=== PATIENT | male | born 1990 | race Two or more races ===

== ENCOUNTER 2017-03-16 18:05 | Inpatient (IN) | payer BC ==
[~2017-03-16] VITALS: Ht 175.3 cm; Wt 126.1 kg
--- NOTE | 2017-03-16 18:29 | PHYS DOC ---
Past Medical History Past Medical History: No Pertinent History Past Surgical History: No Surgical History Alcohol Use: Occasionally Drug Use: None Adult General Chief Complaint Chief Complaint: ABDOMINAL PAIN HPI HPI Patient is a 26 year old M who presents with abdominal pain. Patient states he was eating pizza and developed severe abdominal pain and right upper quadrant pain that radiated to his chest he waited department 20 minutes and the pain was 10 out of 10 and therefore called the ambulance. Upon arrival to the emergency room. The pain 3 out of 10. Patient's states all his pain is epigastric and right upper quadrant. Patient complains of nausea with no vomiting. Patient denies any fevers. Patient denies any previous symptoms. Patient denies any abdominal surgeries. Patient denies any cardiac history. Patient has no other complaints. Review of Systems Review of Systems GEN: Denies fevers, chills, sweats HEENT: Denies blurred vision, sore throat CV: Denies chest pain RESP: Denies shortness of air, cough GI: Abdominal pain NEURO: Denies confusion, dizziness MSK: Denies weakness, joint pain/swelling Current Medications Current Medications Current Medications Medications (Trade) Dose Ordered Sig/Luanne Start Time Stop Time Status Last Admin Dose Admin Famotidine (Pepcid) 20 mg 1X ONCE 03/16/17 18:45 03/16/17 18:46 DC 03/16/17 18:50 20 MG Morphine Sulfate 4 mg PRN Q2HR PRN 03/16/17 20:30 03/17/17 20:29 Ondansetron HCl (Zofran) 4 mg PRN Q8HRS PRN 03/16/17 20:30 03/17/17 20:29 Sodium Chloride 1,000 ml @ 1,000 mls/hr 1X ONCE 03/16/17 18:30 03/16/17 19:29 DC 03/16/17 18:50 1,000 MLS/HR Allergies Allergies Allergies Coded Allergies Type Severity Reaction Last Updated Verified No Known Drug Allergies 03/16/17 No Physical Exam Physical Exam GEN.: No apparent distress. Alert and oriented. HEENT: Head is normocephalic, atraumatic NECK: Supple. LUNGS: CTAB. HEART: RRR, S1, S2 present. Peripheral pulses intact ABDOMEN: Soft, positive tender to palpation epigastric and right upper quadrant with rebound. Positive bowel sounds. EXTREMITIES: Without any cyanosis. NEUROLOGIC: Normal speech, normal tone PSYCHIATRIC: Normal affect, normal mood. SKIN: No ulcerations Current Patient Data Vital Signs Vital Signs Date Time Temp Pulse Resp B/P (MAP) Pulse Ox O2 Delivery O2 Flow Rate FiO2 03/16/17 20:37 81 20 127/60 (82) 100 03/16/17 18:19 98.6 Room Air 98.6 Lab Values Laboratory Tests Test 03/16/17 18:30 03/16/17 18:48 White Blood Count 11.3 x10^3/uL (4.0-11.0) H Red Blood Count 4.82 x10^6/uL (4.30-5.70) Hemoglobin 13.5 g/dL (13.0-17.5) Hematocrit 41.3 % (39.0-53.0) Mean Corpuscular Volume 86 fL (79-100) Mean Corpuscular Hemoglobin 28 pg (25-35) Mean Corpuscular Hemoglobin Concent 33 g/dL (31-37) Red Cell Distribution Width 14.0 % (11.5-14.5) Platelet Count 149 x10^3/uL (140-400) Neutrophils (%) (Auto) 74 % (31-73) H Lymphocytes (%) (Auto) 19 % (24-48) L Monocytes (%) (Auto) 6 % (0-9) Eosinophils (%) (Auto) 1 % (0-3) Basophils (%) (Auto) 1 % (0-3) Neutrophils # (Auto) 8.4 x10^3uL (1.8-7.7) H Lymphocytes # (Auto) 2.1 x10^3/uL (1.0-4.8) Monocytes # (Auto) 0.6 x10^3/uL (0.0-1.1) Eosinophils # (Auto) 0.1 x10^3/uL (0.0-0.7) Basophils # (Auto) 0.1 x10^3/uL (0.0-0.2) Sodium Level 141 mmol/L (136-145) Potassium Level 3.5 mmol/L (3.5-5.1) Chloride Level 103 mmol/L (98-107) Carbon Dioxide Level 29 mmol/L (21-32) Anion Gap 9 (6-14) Blood Urea Nitrogen 18 mg/dL (8-26) Creatinine 1.1 mg/dL (0.7-1.3) Estimated GFR (Cockcroft-Gault) 79.7 BUN/Creatinine Ratio 16 (6-20) Glucose Level 135 mg/dL (70-99) H Calcium Level 9.2 mg/dL (8.5-10.1) Total Bilirubin 0.3 mg/dL (0.2-1.0) Aspartate Amino Transferase (AST) 66 U/L (15-37) H Alanine Aminotransferase (ALT) 74 U/L (16-63) H Alkaline Phosphatase 92 U/L (46-116) Troponin I Quantitative < 0.017 ng/mL (0.000-0.055) Total Protein 7.9 g/dL (6.4-8.2) Albumin 3.6 g/dL (3.4-5.0) Albumin/Globulin Ratio 0.8 (1.0-1.7) L Lipase 134 U/L (73-393) Urine Collection Type Unknown Urine Color Yellow Urine Clarity Clear Urine pH 6.0 Urine Specific [place] 1.020 Urine Protein Negative mg/dL (NEG-TRACE) Urine Glucose (UA) Negative mg/dL (NEG) Urine Ketones (Stick) Negative mg/dL (NEG) Urine Blood Negative (NEG) Urine Nitrite Negative (NEG) Urine Bilirubin Negative (NEG) Urine Urobilinogen Dipstick 0.2 mg/dL (0.2 mg/dL) Urine Leukocyte Esterase Negative (NEG) Urine RBC 0 /HPF (0-2) Urine WBC Occ /HPF (0-4) Urine Squamous Epithelial Cells Few /LPF Urine Bacteria 0 /HPF (0-FEW) Urine Mucus Slight /LPF Laboratory Tests 03/16/17 18:30 Laboratory Tests 03/16/17 18:30 EKG EKG 1900: EKG shows normal sinus rhythm rate of 76 no STEMI[] Radiology/Procedures Radiology/Procedures Ultrasound right upper quadrant: IMPRESSION: 1. Nonmobile 2.5 cm stone in the gallbladder neck. There is no clear pericholecystic fluid or wall thickening, but the weatherization and housing inspector notes a positive Buenrostro sign. Correlate for evidence of infection to assess for acute cholecystitis. 2. Diffuse hepatic steatosis. 3. The common duct is at the upper limits of normal caliber without a clear distal obstructing lesion. Correlate for cholestasis to assess significance. [] Course & Med Decision Making Course & Med Decision Making Pertinent Labs and Imaging studies reviewed. (See chart for details) ED course: Patient was seen and examined emergency room CBC, CMP, lipase, UA, Right Upper Quadrant 2004: Reevaluated the patient who still having right upper quadrant pain explain altered results with him 2013: Discussed CC/HP/PMH with Dr. Salomon and recommends admit and place him on consult. 2040: Discussed CC/HP/PMH with Dr. Ennis and recommends admit [] [] Dragon Disclaimer Dragon Disclaimer This electronic medical record was generated, in whole or in part, using a voice recognition dictation system. Departure Departure Impression: Primary Impression: Right upper quadrant pain Additional Impressions: Transaminitis Cholelithiasis Disposition: ADMITTED INPATIENT Admitting Physician: Other (Dr. Ennis) Condition: STABLE Problem Qualifiers MILLER MACK DO Mar 16, 2017 18:29
[2017-03-16] MEDS ORDERED: IV NORMAL SALINE 1000ML BAG 1,000 ML IV ONE (18:30)
[2017-03-16 18:42] LABS: BASO # 0.1 x10^3/uL (0.0-0.2); BASO % 1 % (0-3); EOS % 1 % (0-3); HEMATOCRIT 41.3 % (39.0-53.0); HEMOGLOBIN 13.5 g/dL (13.0-17.5); LYMPH # 2.1 x10^3/uL (1.0-4.8); LYMPH % 19 % (24-48); MEAN CORPUSCULAR HEMOGLOBIN 28 pg (25-35); MEAN CORPUSCULAR HGB CONC 33 g/dL (31-37); MEAN CORPUSCULAR VOLUME 86 fL (79-100); MONO % 6 % (0-9); NEUT % 74 % (31-73); PLATELET COUNT 149 x10^3/uL (140-400); RED BLOOD COUNT 4.82 x10^6/uL (4.30-5.70); WHITE BLOOD COUNT 11.3 x10^3/uL (4.0-11.0)
[2017-03-16] MEDS ORDERED: FAMOTIDINE 20 MG/2 ML VIAL IVP ONE (18:45)
[2017-03-16] MEDS ORDERED: ONDANSETRON PF 4 MG/2 ML VIAL. IV ONE (18:45)
[2017-03-16 18:48] LABS: CALCIUM 9.2 mg/dL (8.5-10.1); CREATININE 1.1 mg/dL (0.7-1.3); GFR 79.7; POTASSIUM 3.5 mmol/L (3.5-5.1)
[2017-03-16 18:54] LABS: ALBUMIN 3.6 g/dL (3.4-5.0); ALBUMIN/GLOBULIN RATIO 0.8 (1.0-1.7); TOTAL BILIRUBIN 0.3 mg/dL (0.2-1.0); TOTAL PROTEIN 7.9 g/dL (6.4-8.2)
[2017-03-16 19:00] LABS: BILIRUBIN,URINE NEGATIVE (NEG); GLUCOSE,URINE NEGATIVE (NEG); NITRITE,URINE NEGATIVE (NEG); PROTEIN,URINE NEGATIVE (NEG-TRACE); UROBILINOGEN,URINE 0.2 mg/dL (0.2 mg/dL)
[2017-03-16 19:08] LABS: BACTERIA,URINE 0 /HPF (0-FEW); RBC,URINE 0 /HPF (0-2); SQUAMOUS EPITHELIAL CELL,UR FEW /LPF; WBC,URINE OCC /HPF (0-4)
--- NOTE | 2017-03-16 19:51 | RAD ---
EXAM: RIGHT UPPER QUADRANT ULTRASOUND. HISTORY: Right upper quadrant pain. COMPARISON: None. FINDINGS: Sonographic evaluation of the right upper quadrant was performed. Visualization is limited by habitus. Hyperechogenicity of the hepatic parenchyma is consistent with diffuse hepatic steatosis. This lowers sensitivity for focal lesions. And are seen. A gallstone in the gallbladder neck measures 2.5 cm. It is nonmobile. There is no clear pericholecystic fluid or wall thickening. The quality auditor notes a positive Buenrostro sign. The common duct is at the upper limits of normal caliber at 6 mm. mm. Limited images of the head of the pancreas reveal no abnormality. The right kidney measures 11.7 cm. Cortical thickness and echogenicity are preserved. There is no hydronephrosis. The visualized portions of the abdominal aorta and inferior vena cava are grossly patent and normal in caliber. IMPRESSION: 1. Nonmobile 2.5 cm stone in the gallbladder neck. There is no clear pericholecystic fluid or wall thickening, but the quality auditor notes a positive Buenrostro sign. Correlate for evidence of infection to assess for acute cholecystitis. 2. Diffuse hepatic steatosis. 3. The common duct is at the upper limits of normal caliber without a clear distal obstructing lesion. Correlate for cholestasis to assess significance. Electronically signed by: Alana Chaves MD (03/16/2017 7:47 PM) [facility]
[2017-03-16] MEDS ORDERED: ONDANSETRON PF 4 MG/2 ML VIAL. IV PRN (20:30)
[2017-03-16] MEDS ORDERED: MORPHINE SULFATE 4 MG/ML DISP.SYRIN. IV PRN ×2 (20:30→21:15)
[2017-03-16 21:25] VITALS: BP 139/65
[2017-03-16] MEDS ORDERED: MORPHINE SULFATE 2 MG/ML DISP.SYRIN. IV PRN (21:30)
[2017-03-16] MEDS: IV NORMAL SALINE 1000ML BAG 1,000 ML IV SCH (22:50)
[2017-03-16 23:00] VITALS: BP 124/53
--- NOTE | 2017-03-16 23:24 | ACF ---
Admission Forms Criteria ABDOMINAL PAIN Clinical Indications for Admission to Inpatient Care ( [place]/check or initial the applicable condition/criteria): Admission is indicated for ANY ONE of the following (1)(2)(3)(4)(5)(6): [ ]I. Surgery needed that cannot be performed on ambulatory basis [ ]II. Peritoneal signs present (eg, rebound tenderness, rigidity) [ ]III. Evaluation requires patient to not eat or drink for extended period ( eg, more than 24 hours). [X]IV. Inpatient admission required[B] rather than observation care (see Abdominal Pain: Observation Care guideline as appropriate) because of ANY ONE of the following(7)(8)(9): [ ] a) Hemodynamic instability [ ]b) Severe pain requiring acute inpatient management [X]c) Identification of etiology or finding that requires inpatient care (eg, aortic dissection, free air,bowel ischemia)(10) [ ]d) Absent bowel sounds with complete ileus (11) [ ]e) Signs of intestinal obstruction[C] [ ]f) Suspected toxic megacolon [ ]g) Severe electrolyte abnormalities requiring inpatient care [ ]h) High fever or infection requiring inpatient admission as indicated by ANY ONE of the following (12)(13): [ ]i) Appropriate outpatient or observation care antimicrobial treatment unavailable, not effective, or not feasible [ ]ii) Documented bacteremia [ ]iii) Temperature greater than 104.9 degrees F (40.5 degrees C) (oral) [ ]iv) Temperature greater than 103.1 degrees F (39.5 degrees C) ( oral) or less than 96.8 degrees F (36 degrees C) (rectal) that does not respond to all emergency treatment measures [ ]i) IV fluid required rather than oral rehydration to replace significant ongoing (eg, for greater than 24 hours) losses (greater than 3 L/m2 per day)(14)(15) [ ]j) Percutaneous or open drainage (eg, abscess, biliary tract) procedures [ ]k) Parenteral nutrition regimen that must be implemented on inpatient basis [ ]l) Other condition, treatment, or monitoring requiring inpatient admission Extended stay beyond goal length of stay may be needed for (1)(3)(4)(10)(16): [ ]a) Surgery (e.g., colectomy, revascularization procedure) [ ]b) Persistent abdominal pain with suspected intra-abdominal process [ ]c) Diagnosed condition requiring continued stay (e.g., pancreatitis, complicated diverticulitis) The original [facility] content created by [facility] has been revised. The portions of the content which have been revised are identified through the use of italic text, and [facility] has neither reviewed nor approved the modified material.All other unmodified content is copyright [facility]. Please see references footnoted in the original [facility] edition 2015 Admission Criteria Met?: Yes COOPER PRAJAPATI Mar 16, 2017 23:24
--- NOTE | 2017-03-16 23:53 | HP ---
ADMIT DATE: 03/16/2017 CHIEF COMPLAINT: Abdominal pain. HISTORY OF PRESENT ILLNESS: The patient is a 26-year-old gentleman who presented with severe epigastric pain to the Emergency Room. He related that this started shortly after lunch at which time he had ingested 4 slices of pizza. He relates that pain was very sharp, stabbing in nature and in the subxiphoid area. He initially felt like vomiting, went to the bathroom, but could not throw up. He then went to his boss and EMS was called because he was unable to stand or sit. He felt a little better with lying down on the floor. In the Emergency Room, pain was better controlled with pain medications. CT revealed potential signs of cholecystitis and he is now admitted for further management and care. PAST MEDICAL HISTORY: None. FAMILY HISTORY: Positive with gallbladder disease, status post cholecystectomy in his sister, Mother has diabetes. SOCIAL HISTORY: Lives with his family. Drinks alcohol occasionally. No smoking or drugs. ALLERGIES: No known drug allergies. HOME MEDICATIONS: Essentially none. REVIEW OF SYSTEMS: Positive as per HPI. He denies any nausea, vomiting or diarrhea. Denies any chest pain or shortness of breath. Rest of organ system review is negative. PHYSICAL EXAMINATION: VITAL SIGNS: From today show a blood pressure of 108/53, heart rate of 82, respiratory rate at 22. He is afebrile. GENERAL: This is a morbidly obese 26-year-old , alert and oriented, in no acute distress. HEENT: Shows no scleral icterus. NECK: Supple. LUNGS: Clear to auscultation bilaterally. HEART: Regular rate and rhythm. ABDOMEN: Has positive bowel sounds, although diminished, soft. Tenderness to palpation along the entire rib margins, especially in the xiphoid area and right upper quadrant, but also on the left. EXTREMITIES: Show no edema. SKIN: Warm, soft and dry. LABORATORY DATA: CBC with a WBC of 11.3, hemoglobin 13.5, platelets of 149. Chemistries with a BUN and creatinine of 18 and 1.1, glucose at 135. Electrolytes within normal limits. Albumin at 3.6. Urine was negative for infectious symptoms. IMAGING: Ultrasound of the right upper quadrant showed a nonmobile 2.5 cm stone in the gallbladder neck. No clear pericholecystic fluid or wall thickening, but positive Buenrostro sign. Diffuse hepatic steatosis noted as well. Common duct is at the upper limits of normal caliber without clear distal obstructing lesion. ASSESSMENT AND PLAN: The patient is a 26-year-old gentleman presenting with signs and symptoms of gallstone cholecystitis. He is now admitted for further observation and evaluation by surgical team in the a.m. Pain medication will be administered IV. He will remain n.p.o. for the time being. IV fluids will be started. He will be placed on IV H2 blockers as well. His blood sugar is somewhat elevated at about 4 hours after his last meal. We will obtain hemoglobin A1c and monitor blood sugars with serial labs. DEANNE ALVARADO MD DR: JOVANI/nts JOB#: [id number] / [id number] [place]
[2017-03-17] VITALS (12 sets, daily range): BP systolic 95–126; BP diastolic 45–78
[2017-03-17 04:37] LABS: BASO % 1 % (0-3); EOS % 1 % (0-3); HEMATOCRIT 40.4 % (39.0-53.0); HEMOGLOBIN 13.6 g/dL (13.0-17.5); LYMPH # 1.9 x10^3/uL (1.0-4.8); LYMPH % 21 % (24-48); MEAN CORPUSCULAR HEMOGLOBIN 29 pg (25-35); MEAN CORPUSCULAR HGB CONC 34 g/dL (31-37); MEAN CORPUSCULAR VOLUME 85 fL (79-100); MONO % 9 % (0-9); NEUT % 69 % (31-73); PLATELET COUNT 142 x10^3/uL (140-400); RED BLOOD COUNT 4.77 x10^6/uL (4.30-5.70); RED CELL DISTRIBUTION WIDTH 13.9 % (11.5-14.5)
[2017-03-17 04:58] LABS: ALBUMIN 3.3 g/dL (3.4-5.0); CALCIUM 8.5 mg/dL (8.5-10.1); CREATININE 0.9 mg/dL (0.7-1.3); DIRECT BILIRUBIN 1.1 mg/dL (0.0-0.2); GFR 100.5; POTASSIUM 3.7 mmol/L (3.5-5.1); TOTAL BILIRUBIN 1.5 mg/dL (0.2-1.0); TOTAL PROTEIN 7.3 g/dL (6.4-8.2)
--- NOTE | 2017-03-17 06:51 | EKG ---
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
[2017-03-17] MEDS: IV NORMAL SALINE 1000ML BAG 1,000 ML IV SCH ×2 (07:15→17:26)
--- NOTE | 2017-03-17 08:22 | PDOC2 ---
ERNESTINA BERRY STRETCH BOX TENDER 03/17/17 0822: CONSULT Date of Consult Date of Consult DATE: 03/17/17 TIME: 08:15 Reason for Consult Reason for Consult: cholelithiasis Referring Physician Referring Physician: ER Identification/Chief Complaint Chief Complaint abdominal pain Problems: Source Source: Chart review, Patient History of Present Illness Reason for Visit: Acute onset of epigastric, severe pain yesterday afternoon. Started 40 minutes after having pizza for lunch. Attempted to vomit to relieve pain, however did not help. Associated chest tightness due to pain. Does report a similar episode 3 years ago after Macanese food, but the symptoms resolved fairly quickly. 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 No ALCOHOL: occassional Drugs: None Lives: Alone Current Problem List Problem List Problems Medical Problems: (1) Cholelithiasis Status: Acute (2) Right upper quadrant pain Status: Acute (3) Transaminitis Status: Acute Current Medications Current Medications Current Medications Famotidine (Pepcid) 20 mg 1X ONCE IVP Last administered on 03/16/17 18:50; Start 03/16/17 at 18:45; Stop 03/16/17 at 18:46; Status DC Ondansetron HCl (Zofran) 4 mg 1X ONCE IV Last administered on 03/16/17 18:50; Start 03/16/17 at 18:45; Stop 03/16/17 at 18:46; Status DC Sodium Chloride 1,000 ml @ 1,000 mls/hr 1X ONCE IV Last administered on 18:50; Start 03/16/17 at 18:30; Stop 03/16/17 at 19:29; Status DC Ondansetron HCl (Zofran) 4 mg PRN Q8HRS PRN IV NAUSEA/VOMITING; Start 03/16/17 at 20:30; Stop 03/17/17 at 20:29 Morphine Sulfate 4 mg PRN Q2HR PRN IV PAIN; Start 03/16/17 at 20:30; Stop at 21:24; Status DC Morphine Sulfate 4 mg PRN Q2HR PRN IV SEVERE PAIN; Start 03/16/17 at 21:15 Famotidine (Pepcid) 20 mg BID IVP ; Start 03/17/17 at 09:00 Sodium Chloride 1,000 ml @ 100 mls/hr Q10H IV Last administered on 03/16/17t 22 :50; Start 03/16/17 at 21:15 Morphine Sulfate 2 mg PRN Q2HR PRN IV MODERATE PAIN; Start 03/16/17 at 21:30 Active Scripts Active Reported No Known Medications Prior To Admisstion (Info) Each 1 Each Allergies Allergies: Coded Allergies: No Known Drug Allergies (Unverified , 03/16/17) ROS General: No: Chills, Other (fevers) PSYCHOLOGICAL ROS: No: Anxiety, Depression Eyes: No Blurry vision, No Double vision HEENT: No: Heacaches, Sore Throat Hematological and Lymphatic: No: Bleeding Problems, Blood Clots Respiratory: No: Cough, SOB with excertion Cardiovascular: No Chest Pain, No Palpitations Gastrointestinal: Yes Other (see hpi) Genitourinary: No Dysuria, No Hematuria Musculoskeletal: No Joint Pain, No Muscle Pain Neurological: No Confusion, No Numbness/Tingling Skin: No Pruritus, No Rash Physical Exam General: Alert, Oriented X3, Cooperative, No acute distress HEENT: PERRLA, Mucous membr. moist/pink Lungs: Clear to auscultation, Normal air movement Heart: Regular rate, Normal S1, Normal S2, No murmurs Abdomen: Normal bowel sounds, Soft, No tenderness Extremities: No clubbing, No cyanosis Skin: No rashes, No breakdown Neuro: Normal speech, Sensation intact Psych/Mental Status: Mental status NL, Mood NL MUSCULOSKELETAL: No deformity, No swelling Vitals VITALS Vital Signs Date Time Temp Pulse Resp B/P (MAP) Pulse Ox O2 Delivery O2 Flow Rate FiO2 03/17/17 07:00 97.7 66 18 125/78 (94) 98 Room Air 97.7 Labs Labs Laboratory Tests Test 03/16/17 18:30 03/16/17 18:48 03/17/17 04:17 White Blood Count 11.3 x10^3/uL (4.0-11.0) 9.0 x10^3/uL (4.0-11.0) Red Blood Count 4.82 x10^6/uL (4.30-5.70) 4.77 x10^6/uL (4.30-5.70) Hemoglobin 13.5 g/dL (13.0-17.5) 13.6 g/dL (13.0-17.5) Hematocrit 41.3 % (39.0-53.0) 40.4 % (39.0-53.0) Mean Corpuscular Volume 86 fL (79-100) 85 fL (79-100) Mean Corpuscular Hemoglobin 28 pg (25-35) 29 pg (25-35) Mean Corpuscular Hemoglobin Concent 33 g/dL (31-37) 34 g/dL (31-37) Red Cell Distribution Width 14.0 % (11.5-14.5) 13.9 % (11.5-14.5) Platelet Count 149 x10^3/uL (140-400) 142 x10^3/uL (140-400) Neutrophils (%) (Auto) 74 % (31-73) 69 % (31-73) Lymphocytes (%) (Auto) 19 % (24-48) 21 % (24-48) Monocytes (%) (Auto) 6 % (0-9) 9 % (0-9) Eosinophils (%) (Auto) 1 % (0-3) 1 % (0-3) Basophils (%) (Auto) 1 % (0-3) 1 % (0-3) Neutrophils # (Auto) 8.4 x10^3uL (1.8-7.7) 6.2 x10^3uL (1.8-7.7) Lymphocytes # (Auto) 2.1 x10^3/uL (1.0-4.8) 1.9 x10^3/uL (1.0-4.8) Monocytes # (Auto) 0.6 x10^3/uL (0.0-1.1) 0.8 x10^3/uL (0.0-1.1) Eosinophils # (Auto) 0.1 x10^3/uL (0.0-0.7) 0.1 x10^3/uL (0.0-0.7) Basophils # (Auto) 0.1 x10^3/uL (0.0-0.2) 0.0 x10^3/uL (0.0-0.2) Sodium Level 141 mmol/L (136-145) 141 mmol/L (136-145) Potassium Level 3.5 mmol/L (3.5-5.1) 3.7 mmol/L (3.5-5.1) Chloride Level 103 mmol/L (98-107) 105 mmol/L (98-107) Carbon Dioxide Level 29 mmol/L (21-32) 26 mmol/L (21-32) Anion Gap 9 (6-14) 10 (6-14) Blood Urea Nitrogen 18 mg/dL (8-26) 11 mg/dL (8-26) Creatinine 1.1 mg/dL (0.7-1.3) 0.9 mg/dL (0.7-1.3) Estimated GFR (Cockcroft-Gault) 79.7 100.5 BUN/Creatinine Ratio 16 (6-20) Glucose Level 135 mg/dL (70-99) 118 mg/dL (70-99) Calcium Level 9.2 mg/dL (8.5-10.1) 8.5 mg/dL (8.5-10.1) Total Bilirubin 0.3 mg/dL (0.2-1.0) 1.5 mg/dL (0.2-1.0) Aspartate Amino Transf (AST/SGOT) 66 U/L (15-37) 592 U/L (15-37) Alanine Aminotransferase (ALT/SGPT) 74 U/L (16-63) 566 U/L (16-63) Alkaline Phosphatase 92 U/L (46-116) 102 U/L (46-116) Troponin I Quantitative < 0.017 ng/mL (0.000-0.055) Total Protein 7.9 g/dL (6.4-8.2) 7.3 g/dL (6.4-8.2) Albumin 3.6 g/dL (3.4-5.0) 3.3 g/dL (3.4-5.0) Albumin/Globulin Ratio 0.8 (1.0-1.7) Lipase 134 U/L (73-393) 120 U/L (73-393) Urine Collection Type Unknown Urine Color Yellow Urine Clarity Clear Urine pH 6.0 Urine Specific [place] 1.020 Urine Protein Negative mg/dL (NEG-TRACE) Urine Glucose (UA) Negative mg/dL (NEG) Urine Ketones (Stick) Negative mg/dL (NEG) Urine Blood Negative (NEG) Urine Nitrite Negative (NEG) Urine Bilirubin Negative (NEG) Urine Urobilinogen Dipstick 0.2 mg/dL (0.2 mg/dL) Urine Leukocyte Esterase Negative (NEG) Urine RBC 0 /HPF (0-2) Urine WBC Occ /HPF (0-4) Urine Squamous Epithelial Cells Few /LPF Urine Bacteria 0 /HPF (0-FEW) Urine Mucus Slight /LPF Direct Bilirubin 1.1 mg/dL (0.0-0.2) Laboratory Tests Test 03/16/17 18:30 03/16/17 18:48 03/17/17 04:17 White Blood Count 11.3 x10^3/uL (4.0-11.0) 9.0 x10^3/uL (4.0-11.0) Red Blood Count 4.82 x10^6/uL (4.30-5.70) 4.77 x10^6/uL (4.30-5.70) Hemoglobin 13.5 g/dL (13.0-17.5) 13.6 g/dL (13.0-17.5) Hematocrit 41.3 % (39.0-53.0) 40.4 % (39.0-53.0) Mean Corpuscular Volume 86 fL (79-100) 85 fL (79-100) Mean Corpuscular Hemoglobin 28 pg (25-35) 29 pg (25-35) Mean Corpuscular Hemoglobin Concent 33 g/dL (31-37) 34 g/dL (31-37) Red Cell Distribution Width 14.0 % (11.5-14.5) 13.9 % (11.5-14.5) Platelet Count 149 x10^3/uL (140-400) 142 x10^3/uL (140-400) Neutrophils (%) (Auto) 74 % (31-73) 69 % (31-73) Lymphocytes (%) (Auto) 19 % (24-48) 21 % (24-48) Monocytes (%) (Auto) 6 % (0-9) 9 % (0-9) Eosinophils (%) (Auto) 1 % (0-3) 1 % (0-3) Basophils (%) (Auto) 1 % (0-3) 1 % (0-3) Neutrophils # (Auto) 8.4 x10^3uL (1.8-7.7) 6.2 x10^3uL (1.8-7.7) Lymphocytes # (Auto) 2.1 x10^3/uL (1.0-4.8) 1.9 x10^3/uL (1.0-4.8) Monocytes # (Auto) 0.6 x10^3/uL (0.0-1.1) 0.8 x10^3/uL (0.0-1.1) Eosinophils # (Auto) 0.1 x10^3/uL (0.0-0.7) 0.1 x10^3/uL (0.0-0.7) Basophils # (Auto) 0.1 x10^3/uL (0.0-0.2) 0.0 x10^3/uL (0.0-0.2) Sodium Level 141 mmol/L (136-145) 141 mmol/L (136-145) Potassium Level 3.5 mmol/L (3.5-5.1) 3.7 mmol/L (3.5-5.1) Chloride Level 103 mmol/L (98-107) 105 mmol/L (98-107) Carbon Dioxide Level 29 mmol/L (21-32) 26 mmol/L (21-32) Anion Gap 9 (6-14) 10 (6-14) Blood Urea Nitrogen 18 mg/dL (8-26) 11 mg/dL (8-26) Creatinine 1.1 mg/dL (0.7-1.3) 0.9 mg/dL (0.7-1.3) Estimated GFR (Cockcroft-Gault) 79.7 100.5 BUN/Creatinine Ratio 16 (6-20) Glucose Level 135 mg/dL (70-99) 118 mg/dL (70-99) Calcium Level 9.2 mg/dL (8.5-10.1) 8.5 mg/dL (8.5-10.1) Total Bilirubin 0.3 mg/dL (0.2-1.0) 1.5 mg/dL (0.2-1.0) Aspartate Amino Transf (AST/SGOT) 66 U/L (15-37) 592 U/L (15-37) Alanine Aminotransferase (ALT/SGPT) 74 U/L (16-63) 566 U/L (16-63) Alkaline Phosphatase 92 U/L (46-116) 102 U/L (46-116) Troponin I Quantitative < 0.017 ng/mL (0.000-0.055) Total Protein 7.9 g/dL (6.4-8.2) 7.3 g/dL (6.4-8.2) Albumin 3.6 g/dL (3.4-5.0) 3.3 g/dL (3.4-5.0) Albumin/Globulin Ratio 0.8 (1.0-1.7) Lipase 134 U/L (73-393) 120 U/L (73-393) Urine Collection Type Unknown Urine Color Yellow Urine Clarity Clear Urine pH 6.0 Urine Specific [place] 1.020 Urine Protein Negative mg/dL (NEG-TRACE) Urine Glucose (UA) Negative mg/dL (NEG) Urine Ketones (Stick) Negative mg/dL (NEG) Urine Blood Negative (NEG) Urine Nitrite Negative (NEG) Urine Bilirubin Negative (NEG) Urine Urobilinogen Dipstick 0.2 mg/dL (0.2 mg/dL) Urine Leukocyte Esterase Negative (NEG) Urine RBC 0 /HPF (0-2) Urine WBC Occ /HPF (0-4) Urine Squamous Epithelial Cells Few /LPF Urine Bacteria 0 /HPF (0-FEW) Urine Mucus Slight /LPF Direct Bilirubin 1.1 mg/dL (0.0-0.2) Images Images IMPRESSION: 1. Nonmobile 2.5 cm stone in the gallbladder neck. There is no clear pericholecystic fluid or wall thickening, but the manager functional notes a positive Buenrostro sign. Correlate for evidence of infection to assess for acute cholecystitis. 2. Diffuse hepatic steatosis. 3. The common duct is at the upper limits of normal caliber without a clear distal obstructing lesion. Correlate for cholestasis to assess significance. Assessment/Plan Assessment/Plan symptomatic cholelithiasis obesity, BMI 41 Transaminitis d/w pt lap dior, he is hesitant about surgery, we discussed risks of cholecystitis, worsening pain, choledocholithiasis, pancreatitis if elects to not undergo surgery--he is going to speak with his family I will follow up, if agrees plan dior today ADDIS HERNANDES MD 03/17/17 1223: CONSULT Allergies Allergies: Coded Allergies: No Known Drug Allergies (Unverified , 03/16/17) Assessment/Plan Assessment/Plan Reviewed, pt seen and examined independently by myself; 26 year old male with upper mid abdominal pain, acute onset, sharp, nonradiating, some nausea but no vomiting, pain improved significantly; PMH/PSH/ROS/SH as above; exam: alert, oriented, no acute distress, no neck masses, no icterus, lungs clear, heart RR and R, abdomen obese, currently nontender, ext neg for edema or deformity, neuro function grossly intact all 4 extremities; lab/xrays reviewed, note bump in LFTs today; plan for lap dior with grams to evaluate ducts. I discussed the details and risks of surgery with the patient. He understands and would like to proceed. ERNESTINA BERRY APRN Mar 17, 2017 08:22 ADDIS HERNANDES MD Mar 17, 2017 12:23
[2017-03-17] MEDS: FAMOTIDINE 20 MG/2 ML VIAL IVP SCH ×2 (09:00→20:53)
[2017-03-17] MEDS ORDERED: IV RINGERS,LACTATED 1000ML 1,000 ML IV SCH (10:10)
[2017-03-17] MEDS ORDERED: fentaNYL PF VIAL 100 MCG/2 ML VIAL IV PRN (10:15)
[2017-03-17] MEDS ORDERED: LIDOCAINE 1% 1 ML SYRINGE. ID PRN (10:15)
[2017-03-17] MEDS ORDERED: HYDROmorphone 2 MG/ML VIAL IV PRN (10:15)
[2017-03-17] MEDS ORDERED: PROCHLORPERAZINE 10 MG/2 ML VIAL. IV PRN (10:15)
[2017-03-17] MEDS ORDERED: ONDANSETRON PF 4 MG/2 ML VIAL. IV PRN (10:15)
[2017-03-17] MEDS ORDERED: LIDOCAINE 2% PF Vial for OR 5 ML VIAL. ONE (11:11)
[2017-03-17] MEDS ORDERED: ONDANSETRON PF 4 MG/2 ML VIAL. ONE (11:11)
[2017-03-17] MEDS ORDERED: DEXAMETHASONE SOD PHOS 20 MG/5 ML VIAL. ONE (11:11)
[2017-03-17] MEDS ORDERED: PROPOFOL 20 ML IV ONE (11:11)
[2017-03-17] MEDS ORDERED: ROCURONIUM 100 MG/10 ML VIAL. ONE (11:12)
[2017-03-17] MEDS ORDERED: fentaNYL PF VIAL 100 MCG/2 ML VIAL ONE ×3 (11:12→13:42)
[2017-03-17] MEDS ORDERED: MIDAZOLAM HCL/PF 2 MG/2 ML VIAL. ONE (11:12)
[2017-03-17] MEDS ORDERED: SURGICEL HEMOSTAT 4X8 EACH. ONE (11:53)
[2017-03-17] MEDS ORDERED: IOHEXOL 300 MG/ML 50 ML VIAL. ONE (11:53)
[2017-03-17] MEDS ORDERED: BUPIVAC MPF-EPI 0.5%-1:200000 10 ML VIAL. ONE ×2 (11:54)
--- NOTE | 2017-03-17 12:32 | PDOC ---
PROGRESS NOTES Chief Complaint Chief Complaint Abd pain ASSESSMENT AND PLAN: 1. Cholelithiasis/cystitis: s/p lap dior earlier today. recovering appropriately. 2. Pain control: adequate. PO oxy PRN, IV morphine as back up. 3. GI prophylaxis: on H2B bid 4. Dispo: anticipate D/C tomorrow History of Present Illness History of Present Illness abd tender post surg. does not require pain meds currently. Vitals Vitals Vital Signs Date Time Temp Pulse Resp B/P (MAP) Pulse Ox O2 Delivery O2 Flow Rate FiO2 03/17/17 11:39 98.1 66 18 127/62 97 Room Air 98.1 Physical Exam General: Alert, Oriented X3, Cooperative, No acute distress Heart: Regular rate Lungs: Clear Abdomen: Other (post surg ttenderness throughout) Extremities: No clubbing, No cyanosis Skin: No rashes, No breakdown Labs LABS Laboratory Tests Test 03/16/17 18:30 03/16/17 18:48 03/17/17 04:17 White Blood Count 11.3 x10^3/uL (4.0-11.0) 9.0 x10^3/uL (4.0-11.0) Red Blood Count 4.82 x10^6/uL (4.30-5.70) 4.77 x10^6/uL (4.30-5.70) Hemoglobin 13.5 g/dL (13.0-17.5) 13.6 g/dL (13.0-17.5) Hematocrit 41.3 % (39.0-53.0) 40.4 % (39.0-53.0) Mean Corpuscular Volume 86 fL (79-100) 85 fL (79-100) Mean Corpuscular Hemoglobin 28 pg (25-35) 29 pg (25-35) Mean Corpuscular Hemoglobin Concent 33 g/dL (31-37) 34 g/dL (31-37) Red Cell Distribution Width 14.0 % (11.5-14.5) 13.9 % (11.5-14.5) Platelet Count 149 x10^3/uL (140-400) 142 x10^3/uL (140-400) Neutrophils (%) (Auto) 74 % (31-73) 69 % (31-73) Lymphocytes (%) (Auto) 19 % (24-48) 21 % (24-48) Monocytes (%) (Auto) 6 % (0-9) 9 % (0-9) Eosinophils (%) (Auto) 1 % (0-3) 1 % (0-3) Basophils (%) (Auto) 1 % (0-3) 1 % (0-3) Neutrophils # (Auto) 8.4 x10^3uL (1.8-7.7) 6.2 x10^3uL (1.8-7.7) Lymphocytes # (Auto) 2.1 x10^3/uL (1.0-4.8) 1.9 x10^3/uL (1.0-4.8) Monocytes # (Auto) 0.6 x10^3/uL (0.0-1.1) 0.8 x10^3/uL (0.0-1.1) Eosinophils # (Auto) 0.1 x10^3/uL (0.0-0.7) 0.1 x10^3/uL (0.0-0.7) Basophils # (Auto) 0.1 x10^3/uL (0.0-0.2) 0.0 x10^3/uL (0.0-0.2) Sodium Level 141 mmol/L (136-145) 141 mmol/L (136-145) Potassium Level 3.5 mmol/L (3.5-5.1) 3.7 mmol/L (3.5-5.1) Chloride Level 103 mmol/L (98-107) 105 mmol/L (98-107) Carbon Dioxide Level 29 mmol/L (21-32) 26 mmol/L (21-32) Anion Gap 9 (6-14) 10 (6-14) Blood Urea Nitrogen 18 mg/dL (8-26) 11 mg/dL (8-26) Creatinine 1.1 mg/dL (0.7-1.3) 0.9 mg/dL (0.7-1.3) Estimated GFR (Cockcroft-Gault) 79.7 100.5 BUN/Creatinine Ratio 16 (6-20) Glucose Level 135 mg/dL (70-99) 118 mg/dL (70-99) Calcium Level 9.2 mg/dL (8.5-10.1) 8.5 mg/dL (8.5-10.1) Total Bilirubin 0.3 mg/dL (0.2-1.0) 1.5 mg/dL (0.2-1.0) Aspartate Amino Transf (AST/SGOT) 66 U/L (15-37) 592 U/L (15-37) Alanine Aminotransferase (ALT/SGPT) 74 U/L (16-63) 566 U/L (16-63) Alkaline Phosphatase 92 U/L (46-116) 102 U/L (46-116) Troponin I Quantitative < 0.017 ng/mL (0.000-0.055) Total Protein 7.9 g/dL (6.4-8.2) 7.3 g/dL (6.4-8.2) Albumin 3.6 g/dL (3.4-5.0) 3.3 g/dL (3.4-5.0) Albumin/Globulin Ratio 0.8 (1.0-1.7) Lipase 134 U/L (73-393) 120 U/L (73-393) Urine Collection Type Unknown Urine Color Yellow Urine Clarity Clear Urine pH 6.0 Urine Specific [place] 1.020 Urine Protein Negative mg/dL (NEG-TRACE) Urine Glucose (UA) Negative mg/dL (NEG) Urine Ketones (Stick) Negative mg/dL (NEG) Urine Blood Negative (NEG) Urine Nitrite Negative (NEG) Urine Bilirubin Negative (NEG) Urine Urobilinogen Dipstick 0.2 mg/dL (0.2 mg/dL) Urine Leukocyte Esterase Negative (NEG) Urine RBC 0 /HPF (0-2) Urine WBC Occ /HPF (0-4) Urine Squamous Epithelial Cells Few /LPF Urine Bacteria 0 /HPF (0-FEW) Urine Mucus Slight /LPF Direct Bilirubin 1.1 mg/dL (0.0-0.2) DEANNE ALVARADO MD Mar 17, 2017 12:32
[2017-03-17] MEDS ORDERED: GLYCOPYRROLATE 1 MG/5 ML VIAL. ONE (12:47)
[2017-03-17] MEDS ORDERED: ePHEDrine PF IN SALINE 50 MG/5 ML DISP.SYRIN IV ONE (12:48)
[2017-03-17] MEDS ORDERED: NEOSTIGMINE METHYLSULFATE 5 MG/5 ML SYRINGE. ONE (12:50)
--- NOTE | 2017-03-17 13:03 | RAD ---
Intraoperative cholangiogram, 03/17/2017: History: Cholecystectomy 3 spot films from surgery are presented for review. Contrast has been injected into the cystic duct remnant. 28 seconds of fluoroscopy time was utilized. There is good flow of contrast into the duodenum at the ampulla. No filling defect is seen in the common bile duct to suggest a retained calculus. The incompletely opacified intrahepatic ducts are unremarkable. IMPRESSION: No significant abnormality is detected.
[2017-03-17] MEDS ORDERED: DESFLURANE 61 TO 120 MINUTES IH ONE (13:13)
[2017-03-17] MEDS ORDERED: KETOROLAC 30 MG/ML INJ FOR OR. INJ ONE (13:20)
--- NOTE | 2017-03-17 13:27 | PDOC4 ---
Operative Note Operative Note Operative Note: Preoperative Diagnosis: Symptomatic cholelithiasis Postoperative Diagnosis: Same Procedure: Laparoscopic cholecystectomy with intraoperative cholangiogram Surgeons: Aime Asst: Pretty POP Anesthesia: Gen. Estimated Blood Loss: 10 mL Specimen: Gallbladder to pathology Drains: None Complications: None Indications: The patient is a 26-year-old male who was admitted due to upper abdominal pain. His evaluation included an ultrasound which showed gallstones. Surgical treatment was offered by means of a laparoscopic cholecystectomy. The risks of surgery were discussed which include bleeding, infection, bile duct injury, bile leak, pain, the potential for additional surgeries or procedures. The patient understands and would like to proceed. Description: The patient was taken to the operating room and laid supine on the operating table. General anesthesia was performed. The abdomen was prepped with ChloraPrep and draped in a standard surgical fashion. A small supraumbilical incision was made with a scalpel. The Veress needle was then inserted and a pneumoperitoneum was then created. A 5 mm trocar was then inserted and the laparoscope was introduced. In the upper midabdomen a 5 mm trocar was inserted and in the right upper quadrant two 2.3 mm mini lap graspers were inserted. The gallbladder was retracted cephalad. The cystic duct was dissected free from surrounding tissues. One clip was placed on the duct near the gallbladder junction. An opening was made in the duct and a cholangiocatheter placed within and secured with a clip. Using contrast dye and fluoroscopy an intraoperative cholangiogram was performed that appeared unremarkable. The clip and catheter were then withdrawn. Three clips were placed on the cystic duct and it was divided. The cystic artery was then identified, dissected free, doubly clipped and divided as well. The gallbladder was then mobilized away from the liver with cautery. The umbilical 5 millimeter trocar was exchanged for an 11 millimeter trocar. The gallbladder was then placed in an endoscopic bag and extracted at the umbilical trocar site. The fascia there was closed with an 0 Vicryl suture. All blood and irrigation fluid was suctioned and hemostasis was good. The remaining ports were removed and the pneumoperitoneum was relieved. The skin incisions were injected with half percent Marcaine with epinephrine, and all were closed using 4-0 Monocryl suture. Steri-Strips and dressings were then applied. The patient tolerated the procedure well and was sent to the recovery room in stable condition. At the end of the case all counts were correct. ADDIS HERNANDES MD Mar 17, 2017 13:27
[2017-03-17] MEDS ORDERED: oxyCODONE/APAP 5/325 1 TAB TABLET PO PRN (13:30)
[2017-03-17] MEDS: fentaNYL PF VIAL 100 MCG/2 ML VIAL IV PRN ×2 (13:44→14:02)
[2017-03-17] MEDS ORDERED: MORPHINE SULFATE 2 MG/ML DISP.SYRIN. ONE (14:12)
[2017-03-17] MEDS: MORPHINE SULFATE 2 MG/ML DISP.SYRIN. IV PRN ×2 (14:14→14:25)
[2017-03-17] MEDS: oxyCODONE/APAP 5/325 1 TAB TABLET PO PRN (17:26)
[2017-03-18 03:54] VITALS: BP 101/50
[2017-03-18] MEDS: oxyCODONE/APAP 5/325 1 TAB TABLET PO PRN ×3 (04:23→13:48)
[2017-03-18] MEDS: IV NORMAL SALINE 1000ML BAG 1,000 ML IV SCH ×2 (04:23→13:15)
[2017-03-18 07:00] VITALS: BP 112/64
[2017-03-18 07:32] LABS: ALBUMIN 3.1 g/dL (3.4-5.0); DIRECT BILIRUBIN 0.2 mg/dL (0.0-0.2); TOTAL BILIRUBIN 0.5 mg/dL (0.2-1.0); TOTAL PROTEIN 7.2 g/dL (6.4-8.2)
[2017-03-18] MEDS: FAMOTIDINE 20 MG/2 ML VIAL IVP SCH (08:42)
--- NOTE | 2017-03-18 09:38 | PDOC ---
PROGRESS NOTES Subjective Subjective doing well Objective Objective Vital Signs Date Time Temp Pulse Resp B/P (MAP) Pulse Ox O2 Delivery O2 Flow Rate FiO2 03/18/17 07:00 97.7 64 18 112/64 (80) 93 Room Air 97.7 03/17/17 15:45 2.0 Physical Exam Abdomen: Soft, No tenderness Assessment Assessment Problems Medical Problems: (1) Cholelithiasis Status: Acute (2) Right upper quadrant pain Status: Acute (3) Transaminitis Status: Acute Plan Plan of Care ok to discharge Comment Review of Relevant I have reviewed the following items alexandria (where applicable) has been applied. Labs Laboratory Tests Test 03/16/17 18:30 03/16/17 18:48 03/17/17 04:17 03/18/17 06:50 White Blood Count 11.3 x10^3/uL (4.0-11.0) 9.0 x10^3/uL (4.0-11.0) Red Blood Count 4.82 x10^6/uL (4.30-5.70) 4.77 x10^6/uL (4.30-5.70) Hemoglobin 13.5 g/dL (13.0-17.5) 13.6 g/dL (13.0-17.5) Hematocrit 41.3 % (39.0-53.0) 40.4 % (39.0-53.0) Mean Corpuscular Volume 86 fL (79-100) 85 fL (79-100) Mean Corpuscular Hemoglobin 28 pg (25-35) 29 pg (25-35) Mean Corpuscular Hemoglobin Concent 33 g/dL (31-37) 34 g/dL (31-37) Red Cell Distribution Width 14.0 % (11.5-14.5) 13.9 % (11.5-14.5) Platelet Count 149 x10^3/uL (140-400) 142 x10^3/uL (140-400) Neutrophils (%) (Auto) 74 % (31-73) 69 % (31-73) Lymphocytes (%) (Auto) 19 % (24-48) 21 % (24-48) Monocytes (%) (Auto) 6 % (0-9) 9 % (0-9) Eosinophils (%) (Auto) 1 % (0-3) 1 % (0-3) Basophils (%) (Auto) 1 % (0-3) 1 % (0-3) Neutrophils # (Auto) 8.4 x10^3uL (1.8-7.7) 6.2 x10^3uL (1.8-7.7) Lymphocytes # (Auto) 2.1 x10^3/uL (1.0-4.8) 1.9 x10^3/uL (1.0-4.8) Monocytes # (Auto) 0.6 x10^3/uL (0.0-1.1) 0.8 x10^3/uL (0.0-1.1) Eosinophils # (Auto) 0.1 x10^3/uL (0.0-0.7) 0.1 x10^3/uL (0.0-0.7) Basophils # (Auto) 0.1 x10^3/uL (0.0-0.2) 0.0 x10^3/uL (0.0-0.2) Sodium Level 141 mmol/L (136-145) 141 mmol/L (136-145) Potassium Level 3.5 mmol/L (3.5-5.1) 3.7 mmol/L (3.5-5.1) Chloride Level 103 mmol/L (98-107) 105 mmol/L (98-107) Carbon Dioxide Level 29 mmol/L (21-32) 26 mmol/L (21-32) Anion Gap 9 (6-14) 10 (6-14) Blood Urea Nitrogen 18 mg/dL (8-26) 11 mg/dL (8-26) Creatinine 1.1 mg/dL (0.7-1.3) 0.9 mg/dL (0.7-1.3) Estimated GFR (Cockcroft-Gault) 79.7 100.5 BUN/Creatinine Ratio 16 (6-20) Glucose Level 135 mg/dL (70-99) 118 mg/dL (70-99) Calcium Level 9.2 mg/dL (8.5-10.1) 8.5 mg/dL (8.5-10.1) Total Bilirubin 0.3 mg/dL (0.2-1.0) 1.5 mg/dL (0.2-1.0) 0.5 mg/dL (0.2-1.0) Aspartate Amino Transf (AST/SGOT) 66 U/L (15-37) 592 U/L (15-37) 138 U/L (15-37) Alanine Aminotransferase (ALT/SGPT) 74 U/L (16-63) 566 U/L (16-63) 550 U/L (16-63) Alkaline Phosphatase 92 U/L (46-116) 102 U/L (46-116) 104 U/L (46-116) Troponin I Quantitative < 0.017 ng/mL (0.000-0.055) Total Protein 7.9 g/dL (6.4-8.2) 7.3 g/dL (6.4-8.2) 7.2 g/dL (6.4-8.2) Albumin 3.6 g/dL (3.4-5.0) 3.3 g/dL (3.4-5.0) 3.1 g/dL (3.4-5.0) Albumin/Globulin Ratio 0.8 (1.0-1.7) Lipase 134 U/L (73-393) 120 U/L (73-393) Urine Collection Type Unknown Urine Color Yellow Urine Clarity Clear Urine pH 6.0 Urine Specific [place] 1.020 Urine Protein Negative mg/dL (NEG-TRACE) Urine Glucose (UA) Negative mg/dL (NEG) Urine Ketones (Stick) Negative mg/dL (NEG) Urine Blood Negative (NEG) Urine Nitrite Negative (NEG) Urine Bilirubin Negative (NEG) Urine Urobilinogen Dipstick 0.2 mg/dL (0.2 mg/dL) Urine Leukocyte Esterase Negative (NEG) Urine RBC 0 /HPF (0-2) Urine WBC Occ /HPF (0-4) Urine Squamous Epithelial Cells Few /LPF Urine Bacteria 0 /HPF (0-FEW) Urine Mucus Slight /LPF Hemoglobin A1c 5.7 % (4.8-5.6) Direct Bilirubin 1.1 mg/dL (0.0-0.2) 0.2 mg/dL (0.0-0.2) Laboratory Tests Test 03/18/17 06:50 Total Bilirubin 0.5 mg/dL (0.2-1.0) Direct Bilirubin 0.2 mg/dL (0.0-0.2) Aspartate Amino Transf (AST/SGOT) 138 U/L (15-37) Alanine Aminotransferase (ALT/SGPT) 550 U/L (16-63) Alkaline Phosphatase 104 U/L (46-116) Total Protein 7.2 g/dL (6.4-8.2) Albumin 3.1 g/dL (3.4-5.0) Medications Current Medications Famotidine (Pepcid) 20 mg 1X ONCE IVP Last administered on 03/16/17 18:50; Start 03/16/17 at 18:45; Stop 03/16/17 at 18:46; Status DC Ondansetron HCl (Zofran) 4 mg 1X ONCE IV Last administered on 03/16/17 18:50; Start 03/16/17 at 18:45; Stop 03/16/17 at 18:46; Status DC Sodium Chloride 1,000 ml @ 1,000 mls/hr 1X ONCE IV Last administered on 18:50; Start 03/16/17 at 18:30; Stop 03/16/17 at 19:29; Status DC Ondansetron HCl (Zofran) 4 mg PRN Q8HRS PRN IV NAUSEA/VOMITING; Start 03/16/17 at 20:30; Stop 03/17/17 at 20:29; Status DC Morphine Sulfate 4 mg PRN Q2HR PRN IV PAIN; Start 03/16/17 at 20:30; Stop at 21:24; Status DC Morphine Sulfate 4 mg PRN Q2HR PRN IV SEVERE PAIN Last administered on 18:53; Start 03/16/17 at 21:15 Famotidine (Pepcid) 20 mg BID IVP Last administered on 03/18/17 08:42; Start at 09:00 Sodium Chloride 1,000 ml @ 100 mls/hr Q10H IV Last administered on 03/18/17 04 :23; Start 03/16/17 at 21:15 Morphine Sulfate 2 mg PRN Q2HR PRN IV MODERATE PAIN; Start 03/16/17 at 21:30 Cefazolin Sodium/ Dextrose 50 ml @ 100 mls/hr 1X PREOP PRN 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 Last administered on 03/17/17 12:05; Start 03/17/17 at 12:00; Stop 03/18/17 at 18: 00 Ondansetron HCl (Zofran) 4 mg PRN Q6HRS PRN IV NAUSEA/VOMITING Last administered on 03/17/17 18:53; Start 03/17/17 at 10:15; Stop 03/18/17 at 10:14 Fentanyl Citrate (Fentanyl 2ml Vial) 25 mcg PRN Q5MIN PRN IV MILD PAIN; Start 03/17/17 at 10:15; Stop 03/17/17 at 17:09; Status DC Fentanyl Citrate (Fentanyl 2ml Vial) 50 mcg PRN Q5MIN PRN IV MODERATE PAIN Last administered on 03/17/17 14:02; Start 03/17/17 at 10:15; Stop 03/17/17 at 17: 09; Status DC Morphine Sulfate 1 mg PRN Q10MIN PRN IV SEVERE PAIN Last administered on 14:25; Start 03/17/17 at 10:15; Stop 03/17/17 at 17:09; Status DC Ringer's Solution 1,000 ml @ 30 mls/hr Q24H IV Last administered on 03/17/17 11:42; Start 03/17/17 at 10:10; Stop 03/17/17 at 22:09; Status DC Lidocaine HCl 2 ml PRN 1X PRN ID PRIOR TO IV START; Start 03/17/17 at 10:15; Stop 03/18/17 at 10:14 Hydromorphone HCl (Dilaudid) 0.5 mg PRN Q10MIN PRN IV SEV PAIN, Second choice; Start 03/17/17 at 10:15; Stop 03/17/17 at 17:09; Status DC Prochlorperazine Edisylate (Compazine) 5 mg PACU PRN PRN IV NAUSEA, MRX1 Last administered on 03/17/17 14:13; Start 03/17/17 at 10:15; Stop 03/18/17 at 10:14 Dexamethasone Sodium Phosphate (Decadron) 20 mg STK-MED ONCE .ROUTE ; Start 03/17 at 11:11; Stop 03/17/17 at 11:12; Status DC Ondansetron HCl (Zofran) 4 mg STK-MED ONCE .ROUTE ; Start 03/17/17 at 11:11; Stop 03/17/17 at 11:12; Status DC Propofol 20 ml @ As Directed STK-MED ONCE IV ; Start 03/17/17 at 11:11; Stop 03/17 at 11:12; Status DC Lidocaine HCl (Lidocaine Pf 2% Vial) 5 ml STK-MED ONCE .ROUTE ; Start 03/17/17 at 11:11; Stop 03/17/17 at 11:12; Status DC Midazolam HCl (Versed) 2 mg STK-MED ONCE .ROUTE ; Start 03/17/17 at 11:12; Stop 03/17/17 at 11:13; Status DC Fentanyl Citrate (Fentanyl 2ml Vial) 100 mcg STK-MED ONCE .ROUTE ; Start at 11:12; Stop 03/17/17 at 11:13; Status DC Rocuronium [place] (Zemuron) 100 mg STK-MED ONCE .ROUTE ; Start 03/17/17 at 11:12 ; Stop 03/17/17 at 11:13; Status DC Cellulose 1 each STK-MED ONCE .ROUTE Last administered on 03/17/17 13:08; Start 03/17/17 at 11:53; Stop 03/17/17 at 11:54; Status DC Iohexol (Omnipaque 300 Mg/ml) 50 ml STK-MED ONCE .ROUTE Last administered on 12:55; Start 03/17/17 at 11:53; Stop 03/17/17 at 11:54; Status DC Bupivacaine HCl/ Epinephrine Bitart (Sensorcain-Mpf Epi 0.5%-1:006040) 10 ml STK -MED ONCE .ROUTE Last administered on 03/17/17 12:40; Start 03/17/17 at 11:54; Stop 03/17/17 at 11:55; Status DC Bupivacaine HCl/ Epinephrine Bitart (Sensorcain-Mpf Epi 0.5%-1:048825) 10 ml STK -MED ONCE .ROUTE ; Start 03/17/17 at 11:54; Stop 03/17/17 at 11:55; Status DC Fentanyl Citrate (Fentanyl 2ml Vial) 100 mcg STK-MED ONCE .ROUTE ; Start at 12:44; Stop 03/17/17 at 12:45; Status DC Glycopyrrolate (Robinul) 1 mg STK-MED ONCE .ROUTE ; Start 03/17/17 at 12:47; Stop 03/17/17 at 12:48; Status DC Ephedrine Sulfate 50 mg STK-MED ONCE IV ; Start 03/17/17 at 12:48; Stop 03/17/17 at 12:49; Status DC Neostigmine Methylsulfate 5 mg STK-MED ONCE .ROUTE ; Start 03/17/17 at 12:50; Stop 03/17/17 at 12:51; Status DC Desflurane (Suprane) 60 ml STK-MED ONCE IH ; Start 03/17/17 at 13:13; Stop at 13:14; Status DC Ketorolac Tromethamine (Toradol For Or Only) 30 mg STK-MED ONCE INJ ; Start 03/17 at 13:20; Stop 03/17/17 at 13:21; Status DC Oxycodone/ Acetaminophen (Percocet 5/325) 1 tab PRN Q4HRS PRN PO MODERATE PAIN ; Start 03/17/17 at 13:30 Oxycodone/ Acetaminophen (Percocet 5/325) 2 tab PRN Q4HRS PRN PO SEVERE PAIN Last administered on 03/18/17t 08:42; Start 03/17/17 at 13:30 Fentanyl Citrate (Fentanyl 2ml Vial) 100 mcg STK-MED ONCE .ROUTE ; Start at 13:42; Stop 03/17/17 at 13:43; Status DC Morphine Sulfate 2 mg STK-MED ONCE .ROUTE ; Start 03/17/17 at 14:12; Stop at 14:13; Status DC Active Scripts Active Reported No Known Medications Prior To Admisstion (Info) Each 1 Each Vitals/I & O Vital Sign - Last 24 Hours 03/17/17 03/17/17 03/17/17 03/17/17 11:00 11:39 13:35 13:44 Temp 96.8 98.1 96.8 98.1 Pulse 63 66 60 Resp 18 18 20 20 B/P (MAP) 126/68 (87) 127/62 127/60 Pulse Ox 98 97 100 100 O2 Delivery Room Air Room Air Simple Mask Simple Mask O2 Flow Rate 10 10.0 03/17/17 03/17/17 03/17/17 03/17/17 13:50 14:02 14:05 14:14 Pulse 59 77 Resp 20 20 20 20 B/P (MAP) 120/50 111/58 Pulse Ox 99 99 98 99 O2 Delivery Simple Mask Room Air Nasal Cannula Nasal Cannula O2 Flow Rate 10 10.0 2 2.0 03/17/17 03/17/17 03/17/17 03/17/17 14:20 14:22 14:25 14:35 Temp 98.0 98.0 98.0 98.0 Pulse 75 63 Resp 20 20 20 B/P (MAP) 111/49 97/46 Pulse Ox 97 96 O2 Delivery Nasal Cannula Nasal Cannula Nasal Cannula Nasal Cannula O2 Flow Rate 2 2 2.0 2 03/17/17 03/17/17 03/17/17 03/17/17 14:50 15:00 15:15 15:30 Temp 96.8 96.8 Pulse 63 81 67 75 Resp 20 18 B/P (MAP) 99/44 108/51 (70) 98/45 (62) 103/47 (65) Pulse Ox 97 98 97 98 O2 Delivery Nasal Cannula Nasal Cannula Nasal Cannula Nasal Cannula O2 Flow Rate 2 2.0 2.0 2.0 03/17/17 03/17/17 03/17/17 03/17/17 15:45 16:15 16:45 17:45 Pulse 75 85 83 69 B/P (MAP) 101/47 (65) 106/50 (68) 101/50 (67) 102/50 (67) Pulse Ox 98 98 98 97 O2 Delivery Nasal Cannula Room Air Room Air Room Air O2 Flow Rate 2.0 03/17/17 03/17/17 03/17/17 03/17/17 19:00 19:40 20:00 23:10 Temp 97.6 97.7 97.6 97.7 Pulse 67 68 Resp 18 16 18 B/P (MAP) 95/49 (64) 102/54 (70) Pulse Ox 95 96 O2 Delivery Room Air Room Air Room Air Room Air 03/18/17 03/18/17 03/18/17 03/18/17 03:54 04:23 05:30 07:00 Temp 97.7 97.7 97.7 97.7 Pulse 76 64 Resp 18 18 18 18 B/P (MAP) 101/50 (67) 112/64 (80) Pulse Ox 96 93 O2 Delivery Room Air Room Air Room Air Room Air ADDIS HERNANDES MD Mar 18, 2017 09:38
[2017-03-18 11:00] VITALS: BP 122/72
[2017-03-18] MEDS ORDERED: DOCU-109 PO (11:58)
[2017-03-18] MEDS ORDERED: OXYC1TAB7 PO (11:58)
--- NOTE | 2017-03-18 13:59 | PDOC3 ---
Discharge Summary Visit Information Date of Admission: Mar 16, 2017 Date of Discharge: Mar 18, 2017 Admitting Diagnosis: abd pain Final Diagnosis 1. Cholelithiasis/cystitis: s/p lap dior 03/17 recovering appropriately. 2. Pain control: adequate 3. GI prophylaxis: on H2B bid 4. obesity, BMI 41 Problems Medical Problems: (1) Cholelithiasis Status: Acute (2) Right upper quadrant pain Status: Acute (3) Transaminitis Status: Acute Brief Hospital Course Allergies Allergies Coded Allergies Type Severity Reaction Last Updated Verified No Known Drug Allergies 03/17/17 No Vital Signs Vital Signs Date Time Temp Pulse Resp B/P (MAP) Pulse Ox O2 Delivery O2 Flow Rate FiO2 03/18/17 11:00 98.3 64 18 122/72 (89) 100 Room Air 98.3 03/17/17 15:45 2.0 Lab Results Laboratory Tests Test 03/16/17 18:30 03/16/17 18:48 03/17/17 04:17 03/18/17 06:50 White Blood Count 11.3 x10^3/uL (4.0-11.0) 9.0 x10^3/uL (4.0-11.0) Red Blood Count 4.82 x10^6/uL (4.30-5.70) 4.77 x10^6/uL (4.30-5.70) Hemoglobin 13.5 g/dL (13.0-17.5) 13.6 g/dL (13.0-17.5) Hematocrit 41.3 % (39.0-53.0) 40.4 % (39.0-53.0) Mean Corpuscular Volume 86 fL (79-100) 85 fL (79-100) Mean Corpuscular Hemoglobin 28 pg (25-35) 29 pg (25-35) Mean Corpuscular Hemoglobin Concent 33 g/dL (31-37) 34 g/dL (31-37) Red Cell Distribution Width 14.0 % (11.5-14.5) 13.9 % (11.5-14.5) Platelet Count 149 x10^3/uL (140-400) 142 x10^3/uL (140-400) Neutrophils (%) (Auto) 74 % (31-73) 69 % (31-73) Lymphocytes (%) (Auto) 19 % (24-48) 21 % (24-48) Monocytes (%) (Auto) 6 % (0-9) 9 % (0-9) Eosinophils (%) (Auto) 1 % (0-3) 1 % (0-3) Basophils (%) (Auto) 1 % (0-3) 1 % (0-3) Neutrophils # (Auto) 8.4 x10^3uL (1.8-7.7) 6.2 x10^3uL (1.8-7.7) Lymphocytes # (Auto) 2.1 x10^3/uL (1.0-4.8) 1.9 x10^3/uL (1.0-4.8) Monocytes # (Auto) 0.6 x10^3/uL (0.0-1.1) 0.8 x10^3/uL (0.0-1.1) Eosinophils # (Auto) 0.1 x10^3/uL (0.0-0.7) 0.1 x10^3/uL (0.0-0.7) Basophils # (Auto) 0.1 x10^3/uL (0.0-0.2) 0.0 x10^3/uL (0.0-0.2) Sodium Level 141 mmol/L (136-145) 141 mmol/L (136-145) Potassium Level 3.5 mmol/L (3.5-5.1) 3.7 mmol/L (3.5-5.1) Chloride Level 103 mmol/L (98-107) 105 mmol/L (98-107) Carbon Dioxide Level 29 mmol/L (21-32) 26 mmol/L (21-32) Anion Gap 9 (6-14) 10 (6-14) Blood Urea Nitrogen 18 mg/dL (8-26) 11 mg/dL (8-26) Creatinine 1.1 mg/dL (0.7-1.3) 0.9 mg/dL (0.7-1.3) Estimated GFR (Cockcroft-Gault) 79.7 100.5 BUN/Creatinine Ratio 16 (6-20) Glucose Level 135 mg/dL (70-99) 118 mg/dL (70-99) Calcium Level 9.2 mg/dL (8.5-10.1) 8.5 mg/dL (8.5-10.1) Total Bilirubin 0.3 mg/dL (0.2-1.0) 1.5 mg/dL (0.2-1.0) 0.5 mg/dL (0.2-1.0) Aspartate Amino Transf (AST/SGOT) 66 U/L (15-37) 592 U/L (15-37) 138 U/L (15-37) Alanine Aminotransferase (ALT/SGPT) 74 U/L (16-63) 566 U/L (16-63) 550 U/L (16-63) Alkaline Phosphatase 92 U/L (46-116) 102 U/L (46-116) 104 U/L (46-116) Troponin I Quantitative < 0.017 ng/mL (0.000-0.055) Total Protein 7.9 g/dL (6.4-8.2) 7.3 g/dL (6.4-8.2) 7.2 g/dL (6.4-8.2) Albumin 3.6 g/dL (3.4-5.0) 3.3 g/dL (3.4-5.0) 3.1 g/dL (3.4-5.0) Albumin/Globulin Ratio 0.8 (1.0-1.7) Lipase 134 U/L (73-393) 120 U/L (73-393) Urine Collection Type Unknown Urine Color Yellow Urine Clarity Clear Urine pH 6.0 Urine Specific [place] 1.020 Urine Protein Negative mg/dL (NEG-TRACE) Urine Glucose (UA) Negative mg/dL (NEG) Urine Ketones (Stick) Negative mg/dL (NEG) Urine Blood Negative (NEG) Urine Nitrite Negative (NEG) Urine Bilirubin Negative (NEG) Urine Urobilinogen Dipstick 0.2 mg/dL (0.2 mg/dL) Urine Leukocyte Esterase Negative (NEG) Urine RBC 0 /HPF (0-2) Urine WBC Occ /HPF (0-4) Urine Squamous Epithelial Cells Few /LPF Urine Bacteria 0 /HPF (0-FEW) Urine Mucus Slight /LPF Hemoglobin A1c 5.7 % (4.8-5.6) Direct Bilirubin 1.1 mg/dL (0.0-0.2) 0.2 mg/dL (0.0-0.2) Laboratory Tests Test 03/18/17 06:50 Total Bilirubin 0.5 mg/dL (0.2-1.0) Direct Bilirubin 0.2 mg/dL (0.0-0.2) Aspartate Amino Transf (AST/SGOT) 138 U/L (15-37) Alanine Aminotransferase (ALT/SGPT) 550 U/L (16-63) Alkaline Phosphatase 104 U/L (46-116) Total Protein 7.2 g/dL (6.4-8.2) Albumin 3.1 g/dL (3.4-5.0) Brief Hospital Course Mr. Lim is a 26 old male, admit acuite abd pain, RUQ pain, dior seen, symptomatic dior, taken to OR on , Dr. Salomon, lap dior, surg went well, [place] home lifting restrictions 2 weeks discussed, may return to work on light duty earlier Discharge Information Condition at Discharge: Improved Follow Up: Weeks Disposition/Orders: D/C to Home Scheduled Docusate Sodium (Colace), 100 MG PO BID Scheduled PRN Oxycodone Hcl/Acetaminophen (Oxycodone-Acetaminophen 5-325), 1 TAB PO PRN Q4HRS PRN for MODERATE PAIN Miscellaneous Medications Info (No Known Medications Prior To Admisstion), 1 EACH , (Reported) CRICKET BRADFORD MD Mar 18, 2017 13:59
--- NOTE | 2017-03-19 12:48 | PATHOLOGY ---
PATHOLOGY REPORT * * * * * * * * FINAL DIAGNOSIS: Gallbladder, "gallbladder and contents," cholecystectomy: - Chronic cholecystitis with cholelithiasis. (SHA:mgr; 03/19/2017) REPORT ELECTRONICALLY SIGNED BY: Felix Tinajero M.D. DATE/TIME: 03/19/2017 12:48 * * * * * * * * GROSS PATHOLOGY: Received in formalin labeled "Aaron Flanagan and gallbladder with contents," is a 9.0 x 3.0 x 2.0 cm, intact gallbladder with glistening, stein-green serosal surfaces. Opening the gallbladder reveals green-yellow, granular mucosa and an average wall thickness of 0.1 cm. Calculi present and no masses are noted grossly. Bed Spring Maker sections in A1. (SWS; 03/17/2017) INITIAL CPT CODE(S): A; 02240 Professional services [place] [address] Technical services performed by [email or web address] at [address] [place] [address], [facility] [address] [address]. SPECIMEN(S) RECEIVED: A.Gallbladder and contents CLINICAL HISTORY: Symptomatic cholelithiasis PATIENT: AARON CHAN /AGE: 5 1990 (Age: 26) PATIENT #: [id number] ALT CASE #: SPECIMEN COLLECTION DATE: 03/17/2017 SPECIMEN RECEIVED DATE: 03/17/2017 [facility] - [address] [place] [address] - PHONE: [phone] * * * END OF REPORT * * *
== END 2017-03-18 14:00 | disposition home or self-care (01) | DRG 418 ==
LOC: ER 18:05 → 4 NORTH 20:17 → OBSVTOIN 03-18 11:43
PROVIDERS: ADMIT Internal Medicine Hematology & Oncology; ATTEND Internal Medicine Hematology & Oncology
PROC: 0FT44ZZ Resection of Gallbladder, Percutaneous Endoscopic Approach (ICD-10-PCS; principal; 2017-03-18)
PROC: BF101ZZ Fluoroscopy of Bile Ducts using Low Osmolar Contrast (ICD-10-PCS; 2017-03-18)
DX: K80.20 Calculus of gallbladder without cholecystitis without obstruction (principal); Z68.41 Body mass index [BMI] 40.0-44.9, adult; K76.0 Fatty (change of) liver, not elsewhere classified; N30.90 Cystitis, unspecified without hematuria; E66.9 Obesity, unspecified; Z83.3 Family history of diabetes mellitus
CPT/HCPCS: 36415; 74300; 76705; 80048; 80053; 80076; 81001; 83036; 83690; 84484; 85025; 93005; 96361; 96374; 96375; C1769; G0378; G0379; J0690; J0780; J1100; J1885; J2250; J2270; J2405; J2704; J2710; J3010; J3490; J7030; J7120; Q9967; S0028; 99285-25; J2001